=== PATIENT | male | born 1965 | race Asian ===

== ENCOUNTER 2019-02-26 00:28 | Emergency (ER) | payer BC ==
[~2019-02-26] VITALS: Ht 167.6 cm; Wt 65.8 kg
[2019-02-26 00:28] VITALS: BP 132/82
--- NOTE | 2019-02-26 00:28 | NUR ---
Patient BIBA BLS, transferred to bed 9. RN evaluating patient at bedside.
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
--- NOTE | 2019-02-26 00:40 | NUR ---
Patient taken to CT scan via wheelchair by tech.
--- NOTE | 2019-02-26 00:41 | NUR ---
TO CT SCAN VIA WHEELCHAIR.
--- NOTE | 2019-02-26 00:41 | NUR ---
[facility] in [facility] - 02/26/19 at [address] SCAN VIA WHEELCHAIR.
[2019-02-26] MEDS ORDERED: IBUPROFEN 600 MG TAB PO ONE (01:30)
--- NOTE | 2019-02-26 02:15 | NUR ---
Patient discharged with v/s stable. Written and verbal after care instructions given and explained. Patient alert, oriented and verbalized understanding of instructions. Ambulatory with . All questions addressed prior to discharge. ID band removed. Patient advised to follow up with PMD. Rx of MOTRIN given. Patient educated on indication of medication including possible reaction and side effects. Opportunity to ask questions provided and answered.
[2019-02-26 02:26] VITALS: BP 130/82
== END 2019-02-26 02:15 | disposition home or self-care (01) ==
LOC: MED 00:28
DX: S01.01XA Laceration without foreign body of scalp, initial encounter (principal); W20.8XXA Other cause of strike by thrown, projected or falling object, initial encounter; Y93.89 Activity, other specified; Y92.89 Other specified places as the place of occurrence of the external cause; Y99.8 Other external cause status
CPT/HCPCS: 12001; 70450; 99284